=== PATIENT | female | born 1945 | race Caucasian/White ===

== ENCOUNTER 2018-12-10 14:53 | Inpatient (IN) | payer OTHER, MEDICARE ==
[~2018-12-10] VITALS: Ht 172.7 cm; Wt 64.9 kg
[~2018-12-10 14:53] MED LIST: AMOXICILLIN AND1 TA3 PO; ATENOLOL25 MG PO; CELEXA20 MG PO; HYDROCHLOROTH12.5 M2 PO; LAC PO; NORCO1 TA2 PO; RESTORIL15 MG PO
[2018-12-10 14:59] VITALS: Ht 172.7 cm; Wt 64.9 kg
--- NOTE | 2018-12-10 15:04 | NUR ---
PT TO ROOM 9. EKG IN PROGRESS.
--- NOTE | 2018-12-10 15:31 | NUR ---
PT HERE FOR CHEST PAIN 02/07 MID STERNAL AREA WITH RADIATION TO THE BACK FOR 2 DAYS. DENIES N/V/D OR FEVER BUT CLAIMS HEADACHE PAIN 02/07 WITH DIZZINESS AND RINGING IN THE EARS. PT CLAIMS SHE HAD HER BP MEDS CHANGED WITHIN THE LAST 2 WEEKS AND HAS ALSO BEEN HAVING HIGH BP. PT ARRIVES ALERT AND ORIENTED WITH NO DISTRESS NOTED. EKG PERFORMED BY MANAGER GENERAL AT BEDSIDE AND PT CONNECTED TO RFID ANALYST. JAMIR NAZARIO
[2018-12-10 16:19] LABS: BASOPHIL % 0.5 % (0-2); PLATELET COUNT 224 x10^3mcL (130-400); RED CELL DISTRIBUTION WIDTH 14.2 % (11.5-14.5)
--- NOTE | 2018-12-10 16:21 | NUR ---
DR BECERRA AT BEDSIDE FOR EVAL
[2018-12-10 16:37] LABS: CALCIUM 9.4 mg/dL (8.5-10.1); CARBON DIOXIDE 26.1 mmol/L (21-32); CHLORIDE SERUM 97 mmol/L (98-107); CREATININE SERUM 0.5 mg/dL (0.6-1.0); GLUCOSE SERUM 109 mg/dL (74-106); POTASSIUM SERUM 3.3 mmol/L (3.5-5.1); SODIUM SERUM 132 mmol/L (136-145)
[2018-12-10 16:42] LABS: ALBUMIN 3.5 g/dL (3.4-5.0); ALKALINE PHOSPHATASE 87 U/L (46-116); ALT/SGPT 32 U/L (14-59); AST/SGOT 23 U/L (15-37); BILIRUBIN TOTAL 0.3 mg/dL (0.20-1.00); TOTAL PROTEIN, SERUM 6.8 g/dL (6.4-8.2)
[2018-12-10] MEDS ORDERED: ZESTRIL20 MG PO (17:53)
[2018-12-10] MEDS ORDERED: ASPIRIN CHILDRE81 MG PO (17:54)
[2018-12-10] MEDS ORDERED: LIPITOR40 MG PO (17:54)
--- NOTE | 2018-12-10 18:00 | NUR ---
REPOT GIVEN TO GAYLE BENITEZ RN
[2018-12-10 18:09] LABS: MAGNESIUM 1.7 mg/dL (1.8-2.4); PHOSPHOROUS 3.3 mg/dL (2.5-4.9)
[2018-12-10 18:17] LABS: T3 TOTAL 1.22 ng/mL
[2018-12-10 18:18] LABS: FREE T4 0.89 ng/dL (0.76-1.46); FREE THYROXINE INDEX 2.3 ug/dL (1.4-4.5); T4(THYROXINE) 6.5 ug/dL (4.7-13.3)
--- NOTE | 2018-12-10 18:30 | NUR ---
RECEIVED PT VIA [employer] FROM E/D, ACCOMPANIED BY TRANSPORTER AND PT'S DAUGHTER, KRISH ALONSO. PT A/A/O X 4, CALM, COOPERATIVE, W/ C/O TINNITUS TO BILATERAL EARS, INTERMITTENT THROBBING H/A 6/10 EXACERBATED BY WALKING, RELIEVED BY REST AND MEDICATION, DIZZINESS, NAUSEA. ON TELE # 14, SB W/ DEPRESSED ST SEGMENT, HR 58, C/O INTERMITTENT CHEST PAIN ("TIGHTNESS") 2/10, EXACERBATED BY WALKING AND MOVEMENT, RELIEVED BY RESTING AND MEDICATION. LUNGS CTAB, CHEST RISING EVENLY, R/A, 97%, C/O COLD AND PRODUCTIVE COUGH W/ SCANT, THIN, YELLOW SPUTUM. AMBULATORY W/ NORMAL GAIT AND BALANCE. IV SITE RAC, 20G. ORIENTED PT AND DAUGHTER TO ROOM, BED CONTROLS, CALL LIGHT SYSTEM. SIDE RAILS UP X 2, BED IN LOW POSITION. WILL ENDORSE TO TRI PARKER.
[2018-12-10 19:02] VITALS: BP 169/86
--- NOTE | 2018-12-10 19:35 | NUR ---
RECEIVED PT RESTING IN BED, NO ACUTE DISTRESS NOTED. AOX4, REPORTS MINIMAL WERENR, WILL MEDICATE PER ORDER. PT VOMITED 150ML OF LIQUID EMESIS (BRONSON) WITH FOOD PARTICLES. WILL MEDICATE PER ORDER.
[2018-12-10 21:58] VITALS: BP 130/82
--- NOTE | 2018-12-11 00:40 | NUR ---
PT HAD 2ND EPISODE OF EMESIS, 100ML OF LIQUID EMESIS (BRONSON) WITH FOOD PARTICLES. PT REPORTS FEELING BETTER AFTER VOMITING, REPORTS WANTING TO PASS ON THE MEDICATION FOR NAUSEA OF NOW AND WILL REPORT THE NEED FOR MEDICATION IN THE FUTURE. CALL LIGHT WITHIN REACH, BED IN LOWEST POSITION, WILL CONTINUE TO MONITOR.
--- NOTE | 2018-12-11 05:00 | NUR ---
PT RESTED IN INTERVALS DURING SHIFT, NO ACUTE CHANGES OCCURRING OVERNIGHT. PT DENIES CO AT THIS TIME. STATES NAUSEA HAS SUBSIDED. ALL COMFORT AND SAFETY MEASURES PROVIDED FOR, FELISHA LIGHT WITHIN REACH, BED INLOWEST POSITION, WILL CONTINUE TO MONITOR.
[2018-12-11 05:15] VITALS: BP 138/69
[2018-12-11 06:23] LABS: CALCIUM 9.9 mg/dL (8.5-10.1); CARBON DIOXIDE 27.6 mmol/L (21-32); CHLORIDE SERUM 98 mmol/L (98-107); CREATININE SERUM 0.7 mg/dL (0.6-1.0); GLUCOSE SERUM 101 mg/dL (74-106); PHOSPHOROUS 3.3 mg/dL (2.5-4.9); POTASSIUM SERUM 3.5 mmol/L (3.5-5.1); SODIUM SERUM 133 mmol/L (136-145)
[2018-12-11 06:28] LABS: BASOPHIL % 0.8 % (0-2); PLATELET COUNT 233 x10^3mcL (130-400); RED CELL DISTRIBUTION WIDTH 13.9 % (11.5-14.5)
--- NOTE | 2018-12-11 08:03 | NUR ---
A+OX4, NO RESPRIATORY DSITRESS NOTED, DENIES CHEST PAIN, DENIES EAR DISCOMFORT, TELE 14, PULSES MODERATE AND EQUAL JESSIE, NO EDEMA NOTED, LUNG SOUNDS CTA, TOLERATING RA, PRODUCTIVE COUGH, BOWEL SOUNDS ACTIVE, VOIDING FREELY, GENERALIZED WEAKNESS, SKIN INTACT, IV IN RAC SALINE LOCKED.
--- NOTE | 2018-12-11 08:06 | NUR ---
ALL CARE ENDORSED TO DAYSHIFT NURSE, NO ACUTE DISTRESS NOTED, ALL COMOFRT AND SAFETY MEASURES PROVIDED FOR, ALL QUESTIONS AND CONCERNS ADDRESSED, CALL LIGHT WITHIN REACH, BED IN LOWEST POSITION.
--- NOTE | 2018-12-11 09:31 | NUR ---
PT RESTING IN BED, COMPLAINING OF WERNER AND NAUSEA, TYLENOL PO GIVEN, REFUSING NAUSEA MEDS AT THIS TIME, FAMILY AT BEDSIDE, FELISHA LIGHT WITHIN REACH.
[2018-12-11 10:04] VITALS: BP 146/72
--- NOTE | 2018-12-11 10:33 | NUR ---
PER HISTOPATHOLOGIST, PT HAVING BIGEMINY. DR DOUGHERTY PAGED.
--- NOTE | 2018-12-11 11:49 | NUR ---
PT COMPLAINING OF NAUSEA AND VOMITING, ZOFRAN IVP GIVEN, NO RESPIRATORY DSITRESS NOTED, DENIES CHEST PAIN, CALL LIGHT WITHIN REACH.
--- NOTE | 2018-12-11 12:30 | NUR ---
PER GRAIN WEIGHER, PT HAD BIGEMINY FOR [address] LAWSON NOTFIED.
[2018-12-11 12:43] VITALS: BP 158/89
--- NOTE | 2018-12-11 13:40 | NUR ---
NOTIFIED NURSE KALYANI OF EKG RESULT
--- NOTE | 2018-12-11 14:11 | NUR ---
PT COMPLAINING OF NAUSEA AND WERNER, TORADOL IVP GIVEN, PHENERGAN IVP GIVEN, NO RESPIRATORY DISTRESS NOTED, CALL MARIBETH DIETZ.
--- NOTE | 2018-12-11 15:14 | NUR ---
PT RESTING IN BED, NO RESPIRATORY DSITRESS NOTED, STATES TORADOL RELIEVED WERNER, CALL LIGHT WITHIN REACH.
[2018-12-11 18:37] VITALS: BP 139/63
--- NOTE | 2018-12-11 18:38 | NUR ---
PT RESTING IN BED, NO RESPIRATORY DSITRESS NOTED, DENIES PAIN, CALL LIGHT WITHIN REACH.
--- NOTE | 2018-12-11 19:10 | NUR ---
RECEIVED PT LAYING IN BED, NO ACUTE DISTRESS OBSERVED. DENIES PAIN OR DISCOMFORT AT THIS TIME. AA/OX4, ABLE TO MAKE NEEDS KNOWN, SPEECH CLEAR AND APPROPRIATE, DENIES WERNER OR DIZZINESS. SINUS THOM TO TELE #8, DENIES CP OR PRESSURE. PULSES PRESENT AND EQUAL, NO EDEMA NOTED. BREATHING ON RA, EVEN AND UNLABORED, DENIES SOB OR DYSPNEA, LUNGS CTA, O2 SAT 95%, PRODUCTIVE COUGH WITH SCANT YELLOW SPUTUM, PT AWARE FOR NEED TO COLLEST SPUTUM CX. ABD ROUND AND SOFT WITH ACTIVE BOWEL SOUNDS, DENIES N/V/D. FREELY VOIDS URINE WITH BRP. AMBULATORY AND ABLE TO REPOSITION SELF IN BED. IV TO RAC IN PLACE, DRY, PATENT, INTACT, S/L, NO PAIN, REDNESS OR SWELLING WHEN FLUSHED WITH NS. COMFORT AND SAFETY MEASURES IN PLACE. ALL NEEDS ASSESSED AND ATTENDED TO. CALL LIGHT WITHIN REACH. WILL CONTINUE TO MONITOR
[2018-12-11 20:45] VITALS: BP 120/58
--- NOTE | 2018-12-12 05:16 | NUR ---
NO SIGNIFICANT CHANGES TO REPORT, PT COMPLIED WITH NURSING CARE THROUGHOUT THE SHIFT WITH NO ACUTE EVENTS OVERNIGHT. NO ACUTE DISTRESS OBSERVED AT THIS TIME, PT LAYING IN BED, BREATHING EVEN AND UNLABORED, AROUSABLE TO VERBAL STIMULI. COMFORT AND SAFETY MEASURES MAINTAINED. ALL NEEDS ASSESSED AND ATTENDED TO. CALL LIGHT WITHIN REACH. WILL CONTINUE TO MONITOR AND ENDORSE CARE TO DAY SHIFT NURSE
[2018-12-12 06:12] VITALS: BP 149/65
[2018-12-12 06:43] LABS: BASOPHIL % 1.1 % (0-2); PLATELET COUNT 250 x10^3mcL (130-400); RED CELL DISTRIBUTION WIDTH 13.8 % (11.5-14.5)
[2018-12-12 06:50] LABS: CALCIUM 9.3 mg/dL (8.5-10.1); CARBON DIOXIDE 27.4 mmol/L (21-32); CHLORIDE SERUM 98 mmol/L (98-107); CREATININE SERUM 0.6 mg/dL (0.6-1.0); GLUCOSE SERUM 99 mg/dL (74-106); PHOSPHOROUS 3.2 mg/dL (2.5-4.9); POTASSIUM SERUM 3.7 mmol/L (3.5-5.1); SODIUM SERUM 134 mmol/L (136-145)
[2018-12-12 07:16] LABS: AMPHETAMINE QUAL UR NONE DETECTED (See below)
--- NOTE | 2018-12-12 07:52 | NUR ---
A+OX4, DENIES CHEST PAIN, DENIES NAUSEA, TELE 8, PULSES MODERATE AND EQUAL JESSIE, NO EDEMA NOTED, PRIDUCTIVE COUGH WITH SCANT YELLOW SPUTUM, LUNG SOUNDS CTA, TOLERATING RA, BOWEL SOUNDS ACTIVE, VOIDING FREELY, AMBULATORY, SKIN INTACT, IV IN RAC SALINE LOCKED, SITE WNL.
[2018-12-12 09:57] VITALS: BP 156/69
--- NOTE | 2018-12-12 10:28 | NUR ---
PT RESTING IN BED, DENIES WERNER, DENIES NAUSEA, NO RESPRIATORY DSITRESS NOTED, AWARE SHE IS NPO FOR STRESS TEST AT 1400, CALL LIGHT WITHIN REACH.
--- NOTE | 2018-12-12 12:54 | NUR ---
PT SEEN AMBULATING AROUND UNIT INDEPENDENTLY, NOW BACK IN BED, NO RESPIRATORY DSITRESS NOTED, DENIES CHEST PAIN, DENIES WERNER, DENIES NAUSEA, CALL LIGHT WITHIN REACH.
--- NOTE | 2018-12-12 12:55 | NUR ---
IV SITE TO RAC FLUSHING WELL, PATENT.
[2018-12-12 12:56] VITALS: BP 148/64
--- NOTE | 2018-12-12 14:36 | NUR ---
PT OFF UNIT FOR STRESS TEST.
--- NOTE | 2018-12-12 16:00 | NUR ---
PT BACK ON UNIT FROM STRESS TEST, NO RESPRIATORY DSITRESS NOTED, DENIES WERNER, DENIES NAUSEA, DAUGHTER AT BEDSIDE, CALL LIGHT WITHIN REACH.
[2018-12-12 17:17] VITALS: BP 134/65
--- NOTE | 2018-12-12 17:30 | NUR ---
PT SITTING IN CHAIR AT BEDSIDE EATING DINNER, NO RESPIRATORY DSITRESS NOTED, DENIES CHEST PAIN, DENIES WERNER, DENIES NAUSEA, CALL LIGHT WITHIN REACH.
--- NOTE | 2018-12-12 19:25 | NUR ---
RECEIVED PT LAYING IN BED, NO ACUTE DISTRESS OBSERVED. DENIES PAIN OR DISCOMFORT AT THIS TIME. AA/OX4, ABLE TO MAKE NEEDS KNOWN, SPEECH CLEAR AND APPROPRIATE, DENIES WERNER OR DIZZINESS. SINUS THOM TO TELE #8, DENIES CP OR PRESSURE. PULSES PRESENT AND EQUAL, NO EDEMA NOTED. BREATHING ON RA, EVEN AND UNLABORED, DENIES SOB OR DYSPNEA, LUNGS CTA, O2 SAT 95%, PRODUCTIVE COUGH WITH SCANT YELLOW SPUTUM, RECENTLY DX WITH URI, ON AUGMENTIN PO. ABD ROUND AND SOFT WITH ACTIVE BOWEL SOUNDS, DENIES N/V/D. FREELY VOIDS URINE WITH BRP. AMBULATORY AND ABLE TO REPOSITION SELF IN BED. IV TO RAC IN PLACE, DRY, PATENT, INTACT, S/L, NO PAIN, REDNESS OR SWELLING WHEN FLUSHED WITH NS. COMFORT AND SAFETY MEASURES IN PLACE. ALL NEEDS ASSESSED AND ATTENDED TO. CALL LIGHT WITHIN REACH. WILL CONTINUE TO MONITOR
[2018-12-12 21:14] VITALS: BP 127/59
[2018-12-13 06:13] VITALS: BP 126/71
[2018-12-13 06:26] LABS: PLATELET COUNT 226 x10^3mcL (130-400); RED CELL DISTRIBUTION WIDTH 14.1 % (11.5-14.5)
[2018-12-13 06:36] LABS: CALCIUM 9.2 mg/dL (8.5-10.1); CHLORIDE SERUM 102 mmol/L (98-107); CREATININE SERUM 0.6 mg/dL (0.6-1.0); GLUCOSE SERUM 101 mg/dL (74-106); POTASSIUM SERUM 3.7 mmol/L (3.5-5.1); SODIUM SERUM 138 mmol/L (136-145)
--- NOTE | 2018-12-13 07:10 | NUR ---
RECEIVED BEDSIDE REPORT FROM [facility] NURSE AT THIS TIME. PATIENT RESTING COMFORTABLY IN BED AT THIS TIME. NO APPARENT DISTRESS OR DISCOMFORT NOTED. BREATHING EVEN AND UNLABORED. NO RESPIRATORY DISTRESS NOTED. PATIENT DENIES CHEST PAIN AT THIS TIME. TELE [address] ALL QUESTIONS AND CONCERNS ADDRESSED. ALL NEEDS ATTENDED TO. WILL CONTINUE TO MONITOR
[2018-12-13 09:00] VITALS: BP 129/60
--- NOTE | 2018-12-13 10:00 | NUR ---
ALL MORNING MEDICATIONS ADMINISTERED. PATIENT TOLERATED ADMINISTRATION WELL. NO ADVERSE EFFECTS NOTED. NO APPARENT DISTRESS OR DISCOMFORT NOTED. ALL NEEDS ATTENDED TO. WILL CONTINUE TO MONITOR
--- NOTE | 2018-12-13 11:55 | NUR ---
PATIENT AMBULATORY HALLWAYS AT THIS TIME. TOLERATING ACTIVITY WELL. NO APPARENT DISTRESS OR DISCOMFORT. NO INDICATION OF SHORTNESS OF BREATH OR CHEST PAIN. ALL NEEDS ATTENDED TO. WILL CONTINUE TO MONITOR
[2018-12-13 12:21] VITALS: BP 129/60
[2018-12-13 12:39] VITALS: BP 130/70
--- NOTE | 2018-12-13 12:53 | NUR ---
PATIENT SITTING UP ON SIDE OF BED EATING LUNCH AT THIS TIME. PATIENT TOLERATING DIET WELL. NO APPARENT DISTRESS OR DISCOMFORT NOTED. ALL NEEDS ATTENDED TO. WILL CONTINUE TO MONITOR
[2018-12-13] MEDS ORDERED: ZESTRIL20 MG PO (13:40)
[2018-12-13] MEDS ORDERED: HYDROCHLOROTH12.5 M3 PO (13:42)
[2018-12-13] MEDS ORDERED: NOR5 PO (13:43)
--- NOTE | 2018-12-13 15:15 | NUR ---
PATIENT STABLE TO BE DISCHARGED TO HOME. DISCHARGE INSTRUCTIONS GIVEN WELL EDUCATION. INSTRUCTED PATIENT ABOUT FOLLOW UP APPOINTMENT. PATIENT VERBALIZES UNDERSTANDING. IV REMOVED WITH CATH INTACT. ID BANDS REMOVED TELE MONITOR REMOVED AND RETURNED TO CHROME WORKER. ALL BELONGINGS WITH PATIENT. ALL QUESTIONS AND CONCERNS ADDRESSED. ALL NEEDS ATTENDED TO. ESCORTED DOWN TO THE LOBBY
== END 2018-12-13 15:13 | disposition home or self-care (01) | DRG 305 ==
LOC: ED 14:53 → DU 17:05 → EDBEDREQ 17:29 → DU 18:28
PROVIDERS: Emergency Medicine; Internal Medicine; ADMIT Family Medicine
DX: I16.1 Hypertensive emergency (principal); E87.1 Hypo-osmolality and hyponatremia; E83.42 Hypomagnesemia; I25.10 Atherosclerotic heart disease of native coronary artery without angina pectoris; E78.5 Hyperlipidemia, unspecified; I25.2 Old myocardial infarction; Z79.82 Long term (current) use of aspirin; Z68.21 Body mass index [BMI] 21.0-21.9, adult; Z85.3 Personal history of malignant neoplasm of breast; Z95.5 Presence of coronary angioplasty implant and graft
CPT/HCPCS: 84439; A9500; J1885; J2405; J2550; J2785